=== PATIENT | female | born 1950 | race Caucasian/White ===

== ENCOUNTER 2023-11-01 14:51 | Outpatient (RCR) | payer OTHER, SELFPAY | END 2023-11-01 23:59 | disposition home or self-care (01) | LOC: ROT 14:51 | PROVIDERS: ATTENDING PHYSICIAN Orthopaedic Surgery Hand Surgery; FAMILY PHYSICIAN Internal Medicine | DX: Z47.89 Encounter for other orthopedic aftercare (principal); Z73.6 Limitation of activities due to disability | CPT/HCPCS: 97010; 97140; 97166; 97760 ==

== ENCOUNTER 2023-11-20 15:41 | Emergency (ER) | payer OTHER, SELFPAY ==
[2023-11-20 15:45] VITALS: BP 182/81
[2023-11-20 15:59] LABS: % Basophils 0.8 % (0-2); % Eosinophils 2.1 % (0-6); % Immature Granulocytes 0.7 % (0-0.5); % Lymphocytes 23.3 % (20.5-51.1); % Neutrophils 64.1 % (42.2-75.2); Absolute Basophils 0.1 10^3/uL (0-0.2); Absolute Eosinophils 0.1 10^3/uL (0-0.7); Absolute Lymphocytes 1.4 10^3/uL (1.2-3.4); Absolute Monocytes 0.6 10^3/uL (0.1-0.6); Absolute Neutrophils 3.9 10^3/uL (1.4-6.5); Hematocrit 35.4 % (37.0-47.0); Hemoglobin 12.2 g/dL (12.0-16.0); Mean Corp Hgb Conc. 34.5 g/dL (33.0-37.0); Mean Corpuscular Hgb 31.4 pg (27.0-31.0); Mean Corpuscular Volume 91.2 fL (81.0-99.0); Mean Platelet Volume 11.3 fL (7.4-10.4); Nucleated Red Blood Cells % 0 %; Platelet Count 147 10^3/uL (130-400); Red Blood Cell Count 3.88 10^6/uL (4.20-5.40); Red Cell Dist. Width 12.3 % (11.5-14.5); White Blood Cell Count 6.1 10^3/uL (4.8-10.8)
[2023-11-20 16:15] LABS: ALT (SGPT) 25 U/L (0-35); AST (SGOT) 29 U/L (14-36); Albumin 4.7 g/dl (3.5-5.0); Alkaline Phosphatase 69 U/L (38-126); Blood Urea Nitrogen 52 mg/dl (7-17); Calcium 9.3 mg/dl (8.4-10.2); Carbon Dioxide 25 mmol/L (22-30); Chloride 107 mmol/L (98-107); Glucose 81 mg/dl (70-99); Potassium 4.4 mmol/L (3.5-5.1); Sodium 140 mmol/L (135-145); Total Protein 7.3 g/dl (6.3-8.2); eGFR 33.42
[2023-11-20 16:19] LABS: NT-proBNP 339 pg/ml
--- NOTE | 2023-11-20 17:02 | ED.GENMED ---
History of Present Illness
General
Chief Complaint: Swelling
Time Seen by Provider: 11/20/23 16:50
Travel History
Have you had any contact with someone who has COVID-19?: No
Do you have any symptoms of coronavirus? Fever > 100 degrees, chills, cough, shortness of breath, sore throat, loss of taste or smell, muscle aches, or headache?: No
History of Present Illness
History of Present Illness:
73-year-old female with presents the emergency department for evaluation of bilateral leg edema developing over the past 1 to 2 weeks with a reported 12 pound weight gain in the past 3 months. She also reports paroxysmal nocturnal dyspnea over the
past several days. Denies any dyspnea on exertion or chest pain. No fevers or chills. She did up her hydrochlorothiazide dosage from 12.5 to 25 mg for the past 4 days without significant change.
Past History
Past History
ED Past Medical History: CAD, GERD, HTN, Hypercholesterolemia, NIDDM and Other (LE neuropathy)
ED Past Surgical History: Cardiac (Coronary disease status post coronary stent), Cholecystectomy, Gynecological (tubal ligation) and Other (breast reduction)
Social History
Tobacco: Non-smoker
Alcohol: Occasional
Drug: None
Personal:
Living: with family
Family History
Family History: Diabetes and CAD
Review of Systems
Review of Systems
Allergies reviewed?: Yes
All Other Systems: ROS reviewed and negative except as documented in HPI and ROS
Phy Exam
Physical Exam
Physical Exam:
GEN: Well appearing, NAD, WDWN
Eyes: PERRLA, EOMs intact, no scleral icterus
HENT: NCAT, oral mucosa moist
Lungs: CTAB, no wheezes, rales, rhonchi, normal chest wall excursion
Cardiac: RRR, no M/R/G. Radial pulses 2+ bilat
Abdomen: S, NT, ND, NABS, no masses or hepatosplenomegaly
Neuro: AO x 3
MSK: No gross deformity or ecchymosis. Trace pretibial edema bilaterally
Skin: No rashes, petechiae. Normal color, no pallor or jaundice.
Psych: Calm, cooperative, proper hygiene
Scores
Heart Failure Risk
Heart Failure Risk Score: Not Applicable
Course
Orders/Labs/Results
Orders:
Orders
11/20/23 15:52
BNP [NT-proBNP] Urgent
Complete Blood Count/With Diff Urgent
Comprehensive Metabolic Panel Urgent
11/20/23 16:53
CR Chest - 2 Views Urgent
Comment:
Reason For Exam: SOB
Abnormal Lab Results
11/20/23
15:52
RBC 3.88 L 10^6/uL
(4.20-5.40)
Hct 35.4 L %
(37.0-47.0)
MCH 31.4 H pg
(27.0-31.0)
MPV 11.3 H fL
(7.4-10.4)
Immature Gran % 0.7 H %
(0-0.5)
BUN 52 H mg/dl
(7-17)
Creatinine 1.6 H mg/dL
(0.6-1.0)
11/20/23 15:52
11/20/23 15:52
Vital Signs
Initial and Last Documented VS:
Initial Vital Signs
Temp Pulse Resp BP Pulse Ox
97.9 F 63 16 182/81 100
11/20/23 15:45 11/20/23 15:45 11/20/23 15:45 11/20/23 15:45 11/20/23 15:45
Last Documented Vital Signs
Temp Pulse Resp BP Pulse Ox
97.9 F 56 16 153/63 99
11/20/23 15:45 11/20/23 18:22 11/20/23 17:04 11/20/23 18:22 11/20/23 18:22
MDM/Problems Addressed
MDM/Problems Addressed:
Patient's clinical presentation concerning for CHF however her lungs are clear and she has no increased work of breathing. Chest x-ray is unremarkable. BNP is only marginally elevated and this may be in the setting of renal insufficiency, however
creatinine has improved since the most recent labs. Will recommend that she increase her hydrochlorothiazide further and will refer her to cardiology through the heart failure hotline
*Critical Care Note
Total Time (30-74mins, 75-104mins- exclusive of procedures): Not Applicable
ED Attending Note
-
Portions of this chart may have been created with voice recognition software.� Occasional wrong word or��sound alike� substitutions may have occurred due to the inherent limitations of voice recognition software.
Discharge Plan
Departure
Patient Disposition: Home (Routine Discharge)
Date of Disposition: 11/20/23
Time of Disposition: 17:47
Patient with high blood pressure during this ER visit?: Yes
Discharge Problem:
Fluid retention in legs
Instructions: *[facility] Heart Failure Instructions
Prescriptions:
No Action
gabapentin 100 MG capsule
300 mg PO HS
rosuvastatin [Crestor] 40 MG tablet
40 mg PO HS
metoprolol tartrate 25 MG tablet
25 mg PO HS
Farxiga 5 mg Tablet
5 mg PO DAILY
Ozempic 0.25 mg or 0.5 mg(2 mg/1.5 mL) Pen Injector
0.25 mg SC TH
mupirocin 2 % ointment
1 applic topical BID Qty: 1 0RF
cefadroxil 500 mg capsule
500 mg PO BID Qty: 14 0RF
Rx Instructions:
*Take w/ food
*Take w/ probiotic
*POST-OP USE
Saccharomyces boulardii [Florastor] 250 mg capsule
250 mg PO BID Qty: 1 0RF
tramadol 50 mg tablet
50 - 100 mg PO Q6H PRN (Reason: 1 tab moderate, 2 tabs if pain severe) Qty: 30 0RF
Rx Instructions:
Dx Orthopedic surgery
Ongoing therapy
post-op
tizanidine 2 mg capsule
2 mg PO TID Qty: 30 0RF
Rx Instructions:
*Rx provided by Leidy Lynch
losartan 50 MG tablet
100 mg PO HS Qty: 1 0RF
Rx Instructions:
HOLD if systolic blood pressure <130 while on tramadol.
hydrochlorothiazide 50 MG tablet
50 mg PO DAILY Qty: 1 0RF
Rx Instructions:
HOLD if systolic blood pressure <130 while on tramadol.
spironolactone 25 MG tablet
25 mg PO DAILY Qty: 1 0RF
Rx Instructions:
HOLD if systolic blood pressure <130 while on tramadol.
amlodipine 10 mg Tablet
10 mg PO HS Qty: 1 0RF
Rx Instructions:
HOLD if systolic blood pressure <130 while on tramadol.
acetaminophen [Acetaminophen Extra Strength] 500 mg tablet
1,000 mg PO Q6H Qty: 60 0RF
Rx Instructions:
DO NOT exceed >4000 mg daily.
aspirin 325 mg capsule
325 mg PO DAILY Qty: 30 0RF
Rx Instructions:
Take daily x4 weeks for blood clot prevention; then resume Aspirin 81 mg daily.
docusate sodium [Colace] 100 mg capsule
100 mg PO BID Qty: 30 0RF
senna 8.6 mg capsule
17.2 mg PO BID Qty: 30 0RF
ondansetron [ondansetron] 4 mg tablet,disintegrating
4 mg PO Q6H PRN (Reason: n/v) Qty: 20 1RF
Rx Instructions:
post-op
pantoprazole [Protonix] 40 mg tablet,delayed release (DR/EC)
40 mg PO DAILY Qty: 30 0RF
Rx Instructions:
take 1/2 hour b/f food or meds
Referrals:
Julio César Chapman MD [Family Provider] -
Activity Restrictions/Additional Instructions:
Increase your hydrochlorothiazide to 37.5mg daily for 1 week
Follow up with cardiology
Have your primary care physician recheck your kidney labs in 1 week
Interventions
Interventions:
*Risk Screen - Suicide Last Done: 11/20/23 15:45
*General Assessment Last Done: 11/20/23 15:45
*Neglect/Abuse Screening Last Done: 11/20/23 15:45
ED- Fall Risk Assessment Last Done: 11/20/23 18:23
*ED COVID-19 Vaccine History Last Done: 11/20/23 15:45
*Nursing Disposition Last Done: 11/20/23 18:23
ED- Pulmonary Assessment Last Done: 11/20/23 17:12
ED-Skin Assessment Last Done: 11/20/23 17:12
Discharge Date and Time
Discharge Date/Time: 11/20/23 18:24
[2023-11-20 17:03] VITALS: BMI 33.7
[2023-11-20 17:04] VITALS: BP 167/84
[2023-11-20 18:22] VITALS: BP 153/63
== END 2023-11-20 18:24 | disposition home or self-care (01) ==
LOC: EMR 15:41
PROVIDERS: Emergency Medicine; EMERGENCY PHYSICIAN Emergency Medicine; FAMILY PHYSICIAN Internal Medicine
DX: R60.9 Edema, unspecified (principal); I10 Essential (primary) hypertension
CPT/HCPCS: 99284; 71046; 80053; 83880; 85025

== ENCOUNTER 2023-11-29 10:03 | Outpatient (RCR) | payer OTHER, SELFPAY | END 2023-11-29 23:59 | disposition home or self-care (01) | LOC: ROT 10:03 | PROVIDERS: ATTENDING PHYSICIAN Orthopaedic Surgery Hand Surgery; FAMILY PHYSICIAN Internal Medicine | DX: Z73.6 Limitation of activities due to disability; M25.562 Pain in left knee; S83.502D Sprain of unspecified cruciate ligament of left knee, subsequent encounter; X58.XXXD Exposure to other specified factors, subsequent encounter; Z47.89 Encounter for other orthopedic aftercare | CPT/HCPCS: 97010; 97018; 97110; 97140; 97162; 97535 ==

== ENCOUNTER → 2023-12-05 10:55 | Outpatient (REF) | payer OTHER, SELFPAY | LOC: DHCBS MAIN 10:55 | PROVIDERS: ATTENDING PHYSICIAN Physician Assistant Medical; FAMILY PHYSICIAN Nurse Practitioner Adult Health | DX: I10 Essential (primary) hypertension (principal); R06.02 Shortness of breath | CPT/HCPCS: 93306 ==

== ENCOUNTER 2023-12-06 09:53 | Outpatient (RCR) | payer OTHER, SELFPAY | END 2023-12-18 13:54 | disposition home or self-care (01) | LOC: ROT 09:53 | PROVIDERS: ATTENDING PHYSICIAN Orthopaedic Surgery Hand Surgery; FAMILY PHYSICIAN Internal Medicine | DX: Z47.89 Encounter for other orthopedic aftercare (principal); Z73.6 Limitation of activities due to disability | CPT/HCPCS: 97010; 97110; 97140; 97530 ==

== ENCOUNTER → 2023-12-07 08:31 | Outpatient (REF) | payer OTHER, SELFPAY | LOC: RAD 08:31 | PROVIDERS: ATTENDING PHYSICIAN Physician Assistant Medical; FAMILY PHYSICIAN Nurse Practitioner Adult Health | DX: I70.1 Atherosclerosis of renal artery (principal); N28.9 Disorder of kidney and ureter, unspecified | CPT/HCPCS: 93975 ==

== ENCOUNTER → 2024-01-13 09:36 | Outpatient (REF) | payer OTHER, SELFPAY | LOC: MRI 3T 09:36 | PROVIDERS: ATTENDING PHYSICIAN Orthopaedic Surgery; FAMILY PHYSICIAN Nurse Practitioner Adult Health | DX: M25.552 Pain in left hip (principal) | CPT/HCPCS: 73721 ==

== ENCOUNTER → 2024-01-26 07:40 | Outpatient (REF) | payer OTHER, SELFPAY | LOC: RAD 07:40 | PROVIDERS: ATTENDING PHYSICIAN Surgery Vascular Surgery; FAMILY PHYSICIAN Nurse Practitioner Adult Health | DX: I73.9 Peripheral vascular disease, unspecified (principal) | CPT/HCPCS: 93922; 93925; 93978 ==

== ENCOUNTER → 2024-02-16 09:41 | Outpatient (REF) | payer OTHER, SELFPAY | LOC: RAD 09:41 | PROVIDERS: ATTENDING PHYSICIAN Nurse Practitioner Adult Health; FAMILY PHYSICIAN Orthopaedic Surgery | DX: Z00.00 Encounter for general adult medical examination without abnormal findings (principal); M25.572 Pain in left ankle and joints of left foot; M79.672 Pain in left foot | CPT/HCPCS: 73610; 73630 ==

== ENCOUNTER 2024-05-29 08:56 | Outpatient (RCR) | payer OTHER, SELFPAY | END 2024-05-29 23:59 | disposition home or self-care (01) | LOC: RPT 08:56 | PROVIDERS: ATTENDING PHYSICIAN Student in an Organized Health Care Education/Training Program; FAMILY PHYSICIAN Internal Medicine | DX: M79.672 Pain in left foot (principal); M25.572 Pain in left ankle and joints of left foot; M77.9 Enthesopathy, unspecified; Z73.6 Limitation of activities due to disability | CPT/HCPCS: 97110; 97112; 97140; 97162 ==

== ENCOUNTER 2024-07-01 08:54 | Outpatient (RCR) | payer OTHER, SELFPAY | END 2024-07-01 23:59 | disposition home or self-care (01) | LOC: RPT 08:54 | PROVIDERS: ATTENDING PHYSICIAN Student in an Organized Health Care Education/Training Program; FAMILY PHYSICIAN Internal Medicine | DX: M79.672 Pain in left foot (principal); M25.572 Pain in left ankle and joints of left foot; M77.9 Enthesopathy, unspecified; Z73.6 Limitation of activities due to disability | CPT/HCPCS: 97110; 97124; 97140 ==

== ENCOUNTER 2024-07-19 07:00 | Outpatient (RCR) | payer OTHER, SELFPAY | END 2024-07-19 23:59 | disposition home or self-care (01) | LOC: RPT 07:00 | PROVIDERS: ATTENDING PHYSICIAN Student in an Organized Health Care Education/Training Program; FAMILY PHYSICIAN Internal Medicine | DX: M79.672 Pain in left foot (principal); M25.572 Pain in left ankle and joints of left foot; M77.9 Enthesopathy, unspecified; Z73.6 Limitation of activities due to disability | CPT/HCPCS: 97110; 97140 ==

== ENCOUNTER → 2024-07-29 18:12 | Outpatient (REF) | payer OTHER, SELFPAY | LOC: PAVMRI 18:12 | PROVIDERS: ATTENDING PHYSICIAN Orthopaedic Surgery Hand Surgery; FAMILY PHYSICIAN Internal Medicine | DX: M25.512 Pain in left shoulder (principal) | CPT/HCPCS: 73221 ==

== ENCOUNTER 2024-08-27 06:16 | Outpatient (RCR) | payer OTHER, SELFPAY | END 2024-08-27 23:59 | disposition home or self-care (01) | LOC: RPT 06:16 | PROVIDERS: ATTENDING PHYSICIAN Student in an Organized Health Care Education/Training Program; FAMILY PHYSICIAN Nurse Practitioner Adult Health | DX: I89.0 Lymphedema, not elsewhere classified (principal); M79.672 Pain in left foot; M25.572 Pain in left ankle and joints of left foot; Z73.6 Limitation of activities due to disability | CPT/HCPCS: 97163; 97535; 97760 ==

== ENCOUNTER 2024-09-17 15:08 | Outpatient (RCR) | payer OTHER, SELFPAY | END 2024-09-17 23:59 | disposition home or self-care (01) | LOC: RPT 15:08 | PROVIDERS: ATTENDING PHYSICIAN Student in an Organized Health Care Education/Training Program; FAMILY PHYSICIAN Nurse Practitioner Adult Health | DX: I89.0 Lymphedema, not elsewhere classified (principal); M79.672 Pain in left foot; M25.572 Pain in left ankle and joints of left foot; Z73.6 Limitation of activities due to disability; E11.42 Type 2 diabetes mellitus with diabetic polyneuropathy | CPT/HCPCS: 97140; 97535 ==

== ENCOUNTER 2024-10-15 06:28 | Day surgery (SDC) | payer OTHER, SELFPAY ==
[2024-10-11 09:21] LABS: % Basophils 0.9 % (0-2); % Eosinophils 2.7 % (0-6); % Immature Granulocytes 0.4 % (0-0.5); % Lymphocytes 26.1 % (20.5-51.1); % Monocytes 9.4 % (1.7-9.3); % Neutrophils 60.5 % (42.2-75.2); Absolute Basophils 0.1 10^3/uL (0-0.2); Absolute Eosinophils 0.2 10^3/uL (0-0.7); Absolute Lymphocytes 1.5 10^3/uL (1.2-3.4); Absolute Monocytes 0.5 10^3/uL (0.1-0.6); Absolute Neutrophils 3.4 10^3/uL (1.4-6.5); Hematocrit 35.1 % (37.0-47.0); Hemoglobin 11.8 g/dL (12.0-16.0); Mean Corp Hgb Conc. 33.6 g/dL (33.0-37.0); Mean Corpuscular Hgb 30.5 pg (27.0-31.0); Mean Corpuscular Volume 90.7 fL (81.0-99.0); Mean Platelet Volume 12.1 fL (7.4-10.4); Nucleated Red Blood Cells % 0 %; Platelet Count 142 10^3/uL (130-400); Red Blood Cell Count 3.87 10^6/uL (4.20-5.40); Red Cell Dist. Width 12.2 % (11.5-14.5); White Blood Cell Count 5.6 10^3/uL (4.8-10.8)
[2024-10-11 09:51] LABS: ALT (SGPT) 20 U/L (0-35); AST (SGOT) 24 U/L (14-36); Albumin 4.4 g/dl (3.5-5.0); Alkaline Phosphatase 66 U/L (38-126); Blood Urea Nitrogen 48 mg/dl (7-17); Calcium 9.1 mg/dl (8.4-10.2); Carbon Dioxide 26 mmol/L (22-30); Chloride 102 mmol/L (98-107); Glucose 114 mg/dl (70-99); Potassium 3.9 mmol/L (3.5-5.1); Sodium 139 mmol/L (135-145); Total Bilirubin 1.4 mg/dl (0.2-1.3); eGFR 25.41
--- NOTE | 2024-10-11 11:32 | PTCARENOTE ---
Patients 10/11 Elana 2.0Angeli Graf @ Dr. Crump office notified
[2024-10-11 13:16] VITALS: BMI 33.6
[2024-10-15] VITALS (9 sets, daily range): BP systolic 140–161; BP diastolic 50–68; BMI 33.6
[2024-10-15 07:19] LABS: Glucose - Point of Care 123 mg/dl (70-99)
[2024-10-15] MEDS: NORMOSOL-R/PLASMALYTE-A 1000 IV (07:20)
[2024-10-15] MEDS: CELEBREX 200 MG PO (07:29)
[2024-10-15] MEDS: TYLENOL 1000 MG PO (07:29)
[2024-10-15 09:52] LABS: Glucose - Point of Care 158 mg/dl (70-99)
[2024-10-15] MEDS: DILAUDID 0.25 MG IV (10:16)
== END 2024-10-15 12:00 | disposition home or self-care (01) ==
LOC: SDS 06:28
PROVIDERS: ATTENDING PHYSICIAN Orthopaedic Surgery Hand Surgery; FAMILY PHYSICIAN Nurse Practitioner Adult Health; REFERRING PHYSICIAN Internal Medicine Cardiovascular Disease
PROC: 0LB24ZZ Excision of Left Shoulder Tendon, Percutaneous Endoscopic Approach (ICD-10-PCS; 2024-10-15)
DX: M75.122 Complete rotator cuff tear or rupture of left shoulder, not specified as traumatic (principal); M75.42 Impingement syndrome of left shoulder; S46.212A Strain of muscle, fascia and tendon of other parts of biceps, left arm, initial encounter; X58.XXXA Exposure to other specified factors, initial encounter; I44.4 Left anterior fascicular block
CPT/HCPCS: 29827; 29826; 29823; 36415; 80053; 82962; 85025; 93005

== ENCOUNTER 2024-10-22 09:58 | Outpatient (RCR) | payer OTHER, SELFPAY | END 2024-10-22 10:58 | disposition home or self-care (01) | LOC: RPT 09:58 | PROVIDERS: ATTENDING PHYSICIAN Student in an Organized Health Care Education/Training Program; FAMILY PHYSICIAN Nurse Practitioner Adult Health | DX: I89.0 Lymphedema, not elsewhere classified (principal); M79.672 Pain in left foot; M25.572 Pain in left ankle and joints of left foot; Z73.6 Limitation of activities due to disability; E11.42 Type 2 diabetes mellitus with diabetic polyneuropathy | CPT/HCPCS: 97140; 97535 ==

== ENCOUNTER 2024-11-27 13:05 | Outpatient (RCR) | payer OTHER, SELFPAY | END 2024-11-27 23:59 | disposition home or self-care (01) | LOC: RPT 13:05 | PROVIDERS: ATTENDING PHYSICIAN Orthopaedic Surgery Hand Surgery | DX: M25.512 Pain in left shoulder (principal); Z47.89 Encounter for other orthopedic aftercare (principal); M62.81 Muscle weakness (generalized); Z98.890 Other specified postprocedural states; Z73.6 Limitation of activities due to disability | CPT/HCPCS: 97010; 97110; 97140; 97163 ==

== ENCOUNTER 2024-12-27 17:40 | Emergency (ER) | payer OTHER, SELFPAY ==
[2024-12-27 17:48] VITALS: BP 204/76
[2024-12-27 18:20] LABS: % Immature Granulocytes 0.6 % (0-0.5); % Lymphocytes 26.8 % (20.5-51.1); % Monocytes 10.1 % (1.7-9.3); % Neutrophils 58.5 % (42.2-75.2); Absolute Basophils 0.1 10^3/uL (0-0.2); Absolute Eosinophils 0.2 10^3/uL (0-0.7); Absolute Lymphocytes 1.3 10^3/uL (1.2-3.4); Absolute Monocytes 0.5 10^3/uL (0.1-0.6); Absolute Neutrophils 2.9 10^3/uL (1.4-6.5); Hematocrit 34.4 % (37.0-47.0); Hemoglobin 11.8 g/dL (12.0-16.0); Mean Corp Hgb Conc. 34.3 g/dL (33.0-37.0); Mean Corpuscular Hgb 31.4 pg (27.0-31.0); Mean Corpuscular Volume 91.5 fL (81.0-99.0); Mean Platelet Volume 11.5 fL (7.4-10.4); Nucleated Red Blood Cells % 0 %; Platelet Count 131 10^3/uL (130-400); Red Blood Cell Count 3.76 10^6/uL (4.20-5.40); Red Cell Dist. Width 12.8 % (11.5-14.5); White Blood Cell Count 4.9 10^3/uL (4.8-10.8)
[2024-12-27 18:38] LABS: ALT (SGPT) 27 U/L (0-35); AST (SGOT) 26 U/L (14-36); Albumin 4.1 g/dl (3.5-5.0); Alkaline Phosphatase 61 U/L (38-126); Blood Urea Nitrogen 36 mg/dl (7-17); Calcium 9.7 mg/dl (8.4-10.2); Carbon Dioxide 27 mmol/L (22-30); Chloride 105 mmol/L (98-107); Glucose 127 mg/dl (70-99); Potassium 4.1 mmol/L (3.5-5.1); Sodium 141 mmol/L (135-145); Total Bilirubin 0.9 mg/dl (0.2-1.3); Total Protein 6.6 g/dl (6.3-8.2); eGFR 42.62
[2024-12-27 21:25] VITALS: BP 176/55; BMI 36.3
--- NOTE | 2024-12-27 21:51 | ED.GENMED ---
History of Present Illness
General
Chief Complaint: Blood Pressure Problem
Source: patient
Exam Limitations: none
Time Seen by Provider: 12/27/24 21:36
Nursing documentation reviewed up to this point in time: agreed with
History of Present Illness
History of Present Illness:
Patient is a 74-year-old female with history hypertension, hyperlipidemia, diabetes presenting to the emergency department for evaluation of high blood pressure reading at home. Patient states she was leaving this evening to go out to a green party when
she says she felt 'off'. She describes a foggy sensation in her head. She then took her blood pressure and found it to be 200/110. Patient denies any severe headache or neck pain. She denies any blurry vision, double vision,
dizziness/lightheadedness, tearing back pain. Patient denies any numbness/tingling or weakness in lower extremities. She has not had any chest pain or shortness of breath.
Patient took her scheduled hydrochlorothiazide late today. After noticing her blood pressure was high she then took her scheduled dose of amlodipine earlier than typical. She is also prescribed metoprolol which she takes nightly.
Of note�patient does state that her PCP recently took her off of amlodipine as she was having some swelling in her lower legs. She is wondering if this change in medications may have led to high blood pressure reading today. Her PCP did switch her
to hydralazine although she has not started that medication yet.
She does have a history of stage III CKD although states is stable
Past History
Past History
ED Past Medical History: CAD, GERD, HTN, Hypercholesterolemia, NIDDM and Other (LE neuropathy)
ED Past Surgical History: Cardiac (Coronary disease status post coronary stent), Cholecystectomy, Gynecological (tubal ligation) and Other (breast reduction)
Social History
Tobacco: Non-smoker
Alcohol: Occasional
Drug: None
Personal:
Living: with family
Family History
Family History: Diabetes and CAD
Review of Systems
Review of Systems
Allergies reviewed?: Yes
All Other Systems: ROS reviewed and negative except as documented in HPI and ROS
Phy Exam
Physical Exam
Physical Exam:
Vitals: Hypertensive, otherwise vital signs stable.
General: Patient is well appearing, no acute distress
Skin: Warm and dry, no rashes or lesions
Head: Normocephalic, atraumatic
Eyes: Sclera nonicteric. Pupils equal round reactive to light bilaterally. EOMs intact. No nystagmus.
Throat: Protecting airway
Neck: Normal ROM, no cervical spine tenderness, no meningismus. No JVD
Cardiac: Regular rate and rhythm, no murmurs. 2+ radial pulses bilaterally
Pulm: Normal respiratory effort, no wheezes, rales, rhonchi heard on exam.
Abdomen: Abdomen soft nontender. No abdominal tenderness.
Extremities: No evidence of cyanosis or edema. Strength 5 out of 5 in upper and lower extremities
Neuro: AAOx3. Normal finger-nose. Fluid speech. No facial droop or asymmetry. Steady gait. Grossly intact.
Psychiatric: Normal affect.
Course
Orders/Labs/Results
Orders:
Orders
12/27/24 17:57
EKG [Electrocardiogram (*1)] Urgent
Reason for Study: Vertigo / Dizzy
EKG- Treatment ONCE
12/27/24 18:09
CMP [Comprehensive Metabolic Panel] Urgent
Complete Blood Count/With Diff Urgent
Abnormal Lab Results
12/27/24
18:09
RBC 3.76 L 10^6/uL
(4.20-5.40)
Hgb 11.8 L g/dL
(12.0-16.0)
Hct 34.4 L %
(37.0-47.0)
MCH 31.4 H pg
(27.0-31.0)
MPV 11.5 H fL
(7.4-10.4)
Immature Gran % 0.6 H %
(0-0.5)
Monocytes % 10.1 H %
(1.7-9.3)
BUN 36 H mg/dl
(7-17)
Creatinine 1.3 H mg/dL
(0.6-1.0)
Glucose 127 H mg/dl
(70-99)
12/27/24 18:09
12/27/24 18:09
Vital Signs
Initial and Last Documented VS:
Initial Vital Signs
Temp Pulse Resp BP Pulse Ox
98.8 F 57 18 204/76 99
12/27/24 17:48 12/27/24 17:48 12/27/24 17:48 12/27/24 17:48 12/27/24 17:48
Last Documented Vital Signs
Temp Pulse Resp BP Pulse Ox
98.8 F 56 16 162/86 96
12/27/24 17:48 12/27/24 23:30 12/27/24 23:30 12/27/24 23:00 12/27/24 22:30
MDM/Problems Addressed
Differential Diagnosis Includes:
Not limited to: Manic hypertension, hypertensive emergency, medication noncompliance, etc.
MDM/Problems Addressed:
74-year-old female with history as documented presenting with high blood pressure readings at home. There was no associated severe headache, visual changes, severe back pain, chest pain, or shortness of breath. She is recently undergoing some
blood pressure medication changes as she was taken off amlodipine due to lower leg swelling although has not yet began her hydralazine. She does also take hydrochlorothiazide and metoprolol for hypertension. Patient arrives hypertensive, otherwise
with stable vital signs. Physical exam as above. Screening labs were sent off in triage without clinically significant abnormalities. Mild renal insufficiency noted with creatinine of 1.3 however patient does have stage III CKD and this appears
around her baseline. EKG shows normal sinus rhythm without significant changes from prior and no acute ischemic changes. By my assessment�BP has decreased to 151/60 without intervention. Patient asymptomatic at this time, although mildly hungry.
There is no evidence of endorgan damage on lab work or physical exam. Patient remains very well and comfortable appearing. She ate a sandwich and feels well. Her blood pressure, while remains hypertensive has improved without intervention. There
is no indication for IV antihypertensive medication at this time. Do suspect that medication changes played a role in high blood pressure today. Ultimately�feel patient stable for discharge home with primary care follow-up. Advised to take
medications as prescribed which would include discontinuing amlodipine and initiating hydralazine as discussed with primary care. Close return precautions discussed. Patient stable for discharge home. Comfortable with plan.
Chronic conditions affecting care:
Hypertension
Acute Exacerbation and/or Progression of Chronic Illness:
Acutely hypertensive
*Pulse Oximetry
Patient hypoxic: no
*EKG
Interpreted by ED Provider?: Yes
EKG Intrepretation Date: 12/27/24
Interpretation: abnormal
Comparison EKG: no changes
Heart Rate: 65
Rate: normal
Rhythm: sinus
[place]: left axis deviation
Interval: first degree heart block
QRS Pattern: normal QRS
Ischemia: non-specific ST changes
*Nurse Monitoring Interpretation
Rate: normal
Interpretation: normal
Heart Rate: 56
Rhythm: sinus
*Critical Care Note
Total Time (30-74mins, 75-104mins- exclusive of procedures): Not Applicable
ED Attending Note
-
Portions of this chart may have been created with voice recognition software.� Occasional wrong word or��sound alike� substitutions may have occurred due to the inherent limitations of voice recognition software.
Discharge Plan
Departure
Patient Disposition: Home (Routine Discharge)
Date of Disposition: 12/27/24
Time of Disposition: 23:19
Patient with high blood pressure during this ER visit?: Yes
Condition: Good
Covid-19: Not Applicable
Discharge Problem:
Hypertension
Instructions: High Blood Pressure (DC), BLOOD PRESSURE
Prescriptions:
No Action
rosuvastatin [Crestor] 40 MG tablet
40 mg PO HS
losartan 50 MG tablet
100 mg PO HS Qty: 1 0RF
amlodipine 10 mg Tablet
10 mg PO HS Qty: 1 0RF
aspirin [Aspir-81] 81 mg Tablet,Delayed Release (Dr/Ec)
81 mg PO HS
metoprolol succinate 25 mg Tablet Extended Release 24 Hr
25 mg PO HS
pregabalin [Lyrica] 50 mg Capsule
50 mg PO TID
cholecalciferol (vitamin D3) [Vitamin D3] 125 mcg (5,000 unit) Tablet
125 mcg PO HS
Mounjaro 2.5 mg/0.5 mL Pen Injector
2.5 mg SC QWEEK
Rx Instructions:
Q Wed
hydrochlorothiazide 50 MG tablet
50 mg PO DAILY
acetaminophen [Acetaminophen Extra Strength] 500 mg tablet
1,000 mg PO PRN PRN (Reason: pain)
Referrals:
Julio César Chapman MD [Family Provider] - Follow up in 5-7 days
Activity Restrictions/Additional Instructions:
Return to the emergency department any persistently elevated blood pressure or associated symptoms including severe headache, neck pain, tearing back pain, changes in vision, numbness/tingling or weakness in lower extremities, chest pain, shortness
of breath, or any other concerns
-As discussed�your lab work showed no acute abnormalities today. Your kidney function appears stable. Your blood pressure did improve in the emergency department without intervention.
-You should continue to take your medications as prescribed by your primary care provider.
-You should eat a balanced diet and try to limit your salt intake. It is more to stay well-hydrated
-Follow-up with primary care/nephrology for further evaluation and management of hypertensive medications
Monitor your symptoms closely and return to the emergency department with any acute worsening/new symptoms or any other concerns
Interventions
Interventions:
*Risk Screen - Suicide Last Done: 12/27/24 17:48
*General Assessment Last Done: 12/27/24 21:25
*Neglect/Abuse Screening Last Done: 12/27/24 17:48
*ED- Fall Risk Assessment Last Done: 12/27/24 21:07
*ED COVID-19 Vaccine History Last Done: 12/27/24 17:48
*Nursing Disposition Last Done: 12/27/24 23:41
ED- Cardiac Assessment Last Done: 12/27/24 21:25
ED- Neurological Assessment Last Done: 12/27/24 21:25
ED- Pulmonary Assessment Last Done: 12/27/24 21:25
Discharge Date and Time
Discharge Date/Time: 12/27/24 23:41
Print Language: DANISH
[2024-12-27 22:00] VITALS: BP 151/60
[2024-12-27 23:00] VITALS: BP 162/86
== END 2024-12-27 23:41 | disposition home or self-care (01) ==
LOC: EMR 17:40
PROVIDERS: Student in an Organized Health Care Education/Training Program; EMERGENCY PHYSICIAN Emergency Medicine; FAMILY PHYSICIAN Internal Medicine
DX: I12.9 Hypertensive chronic kidney disease with stage 1 through stage 4 chronic kidney disease, or unspecified chronic kidney disease (principal); E11.22 Type 2 diabetes mellitus with diabetic chronic kidney disease; N18.30 Chronic kidney disease, stage 3 unspecified; I25.10 Atherosclerotic heart disease of native coronary artery without angina pectoris; K21.9 Gastro-esophageal reflux disease without esophagitis; E78.00 Pure hypercholesterolemia, unspecified; Z79.899 Other long term (current) drug therapy; Z82.49 Family history of ischemic heart disease and other diseases of the circulatory system; Z83.3 Family history of diabetes mellitus; Z90.49 Acquired absence of other specified parts of digestive tract; Z95.5 Presence of coronary angioplasty implant and graft; Z98.51 Tubal ligation status
CPT/HCPCS: 99283; 80053; 85025; 93005

== ENCOUNTER 2024-12-30 10:42 | Outpatient (RCR) | payer OTHER, SELFPAY | END 2024-12-30 23:59 | disposition home or self-care (01) | LOC: RPT 10:42 | PROVIDERS: ATTENDING PHYSICIAN Orthopaedic Surgery Hand Surgery | DX: Z47.89 Encounter for other orthopedic aftercare (principal); Z98.890 Other specified postprocedural states (principal); M25.512 Pain in left shoulder; M62.81 Muscle weakness (generalized); Z73.6 Limitation of activities due to disability | CPT/HCPCS: 97010; 97110; 97140 ==

== ENCOUNTER 2025-01-27 10:51 | Outpatient (RCR) | payer OTHER, SELFPAY | END 2025-01-27 23:59 | disposition home or self-care (01) | LOC: RPT 10:51 | PROVIDERS: ATTENDING PHYSICIAN Orthopaedic Surgery Hand Surgery | DX: Z47.89 Encounter for other orthopedic aftercare (principal); M25.512 Pain in left shoulder; M62.81 Muscle weakness (generalized); Z73.6 Limitation of activities due to disability; Z98.890 Other specified postprocedural states | CPT/HCPCS: 97010; 97110; 97140 ==

== ENCOUNTER → 2025-02-04 07:35 | Outpatient (REF) | payer OTHER, SELFPAY | LOC: DHVS 07:35 | PROVIDERS: ATTENDING PHYSICIAN Surgery Vascular Surgery; FAMILY PHYSICIAN Internal Medicine | DX: I73.9 Peripheral vascular disease, unspecified (principal) | CPT/HCPCS: 93975 ==

== ENCOUNTER 2025-02-27 10:52 | Outpatient (RCR) | payer OTHER, SELFPAY | END 2025-02-27 23:59 | disposition home or self-care (01) | LOC: RPT 10:52 | PROVIDERS: ATTENDING PHYSICIAN Orthopaedic Surgery Hand Surgery | DX: Z47.89 Encounter for other orthopedic aftercare (principal); M25.512 Pain in left shoulder; M62.81 Muscle weakness (generalized); Z73.6 Limitation of activities due to disability; Z98.890 Other specified postprocedural states | CPT/HCPCS: 97010; 97110; 97140 ==

== ENCOUNTER 2025-03-26 11:05 | Outpatient (RCR) | payer OTHER, SELFPAY | END 2025-03-26 23:59 | disposition home or self-care (01) | LOC: RPT 11:05 | PROVIDERS: ATTENDING PHYSICIAN Orthopaedic Surgery Hand Surgery | DX: Z47.89 Encounter for other orthopedic aftercare (principal); M25.512 Pain in left shoulder; M62.81 Muscle weakness (generalized); Z73.6 Limitation of activities due to disability; Z98.890 Other specified postprocedural states | CPT/HCPCS: 97010; 97110; 97140 ==

== ENCOUNTER → 2025-04-10 07:27 | Outpatient (REF) | payer OTHER, SELFPAY | LOC: WDC 07:27 | PROVIDERS: ATTENDING PHYSICIAN Obstetrics & Gynecology Gynecology; FAMILY PHYSICIAN Internal Medicine | DX: Z12.31 Encounter for screening mammogram for malignant neoplasm of breast (principal) | CPT/HCPCS: 77063; 77067 ==

== ENCOUNTER → 2025-04-30 10:01 | Outpatient (REF) | payer OTHER, SELFPAY | LOC: HWRAD 10:01 | PROVIDERS: ATTENDING PHYSICIAN Internal Medicine | DX: E04.1 Nontoxic single thyroid nodule (principal) | CPT/HCPCS: 76536 ==

== ENCOUNTER 2025-05-29 10:18 | Outpatient (RCR) | payer OTHER, SELFPAY | END 2025-05-29 23:59 | disposition home or self-care (01) | LOC: RPT 10:18 | PROVIDERS: ATTENDING PHYSICIAN Pain Medicine Interventional Pain Medicine; FAMILY PHYSICIAN Internal Medicine | DX: M54.12 Radiculopathy, cervical region (principal); M77.12 Lateral epicondylitis, left elbow; Z73.6 Limitation of activities due to disability | CPT/HCPCS: 97010; 97110; 97112; 97140; 97162 ==

== ENCOUNTER 2025-06-30 08:54 | Outpatient (RCR) | payer OTHER, SELFPAY | END 2025-07-01 07:00 | disposition home or self-care (01) | LOC: RPT 08:54 | PROVIDERS: ATTENDING PHYSICIAN Pain Medicine Interventional Pain Medicine; FAMILY PHYSICIAN Internal Medicine | DX: M54.12 Radiculopathy, cervical region (principal); M77.12 Lateral epicondylitis, left elbow; Z73.6 Limitation of activities due to disability | CPT/HCPCS: 97010; 97110; 97140 ==

== ENCOUNTER 2025-08-25 10:02 | Outpatient (RCR) | payer OTHER, SELFPAY | END 2025-08-25 23:59 | disposition home or self-care (01) | LOC: RPT 10:02 | PROVIDERS: ATTENDING PHYSICIAN Orthopaedic Surgery; FAMILY PHYSICIAN Internal Medicine | DX: M21.861 Other specified acquired deformities of right lower leg (principal); M21.862 Other specified acquired deformities of left lower leg (principal); Z96.652 Presence of left artificial knee joint; R26.2 Difficulty in walking, not elsewhere classified; R26.89 Other abnormalities of gait and mobility | CPT/HCPCS: 97110; 97162; 97530 ==

== ENCOUNTER → 2025-09-01 07:09 | Outpatient (REF) | payer OTHER, SELFPAY | LOC: HWRCS 07:09 | PROVIDERS: ATTENDING PHYSICIAN Internal Medicine Cardiovascular Disease; FAMILY PHYSICIAN Internal Medicine | DX: R06.02 Shortness of breath (principal) | CPT/HCPCS: 78452; 93017; A9500; J2785 ==

== ENCOUNTER → 2025-09-08 12:40 | Outpatient (REF) | payer OTHER, SELFPAY | LOC: RCS 12:40 | PROVIDERS: ATTENDING PHYSICIAN Internal Medicine Cardiovascular Disease; FAMILY PHYSICIAN Internal Medicine | DX: R06.02 Shortness of breath (principal) | CPT/HCPCS: 93306 ==

== ENCOUNTER 2025-09-22 13:55 | Outpatient (RCR) | payer OTHER, SELFPAY | END 2025-09-22 23:59 | disposition home or self-care (01) | LOC: RPT 13:55 | PROVIDERS: ATTENDING PHYSICIAN Orthopaedic Surgery; FAMILY PHYSICIAN Internal Medicine | DX: M21.862 Other specified acquired deformities of left lower leg (principal); R26.2 Difficulty in walking, not elsewhere classified; R26.89 Other abnormalities of gait and mobility; M21.861 Other specified acquired deformities of right lower leg; M62.81 Muscle weakness (generalized); M25.551 Pain in right hip; Z96.652 Presence of left artificial knee joint | CPT/HCPCS: 97110 ==